=== PATIENT | male | born 1975 | race African-American/Black ===

== ENCOUNTER 2016-11-29 13:22 | Emergency (ER) | payer OTHER ==
[~2016-11-29] VITALS: Ht 180.3 cm; Wt 124.7 kg
[~2016-11-29 13:22] MED LIST: ASPIR-LOW81 MG ORAL; COLACE100 MG/10 GT; DAILY MULTIPLE1 EAC1 GT; DIGOXIN0.25 MG/5 GT; DIGOXIN125 MCG ORAL; FERROUS SULFAT325 M1 GT; HEPARIN SO5000 UNIT/ IJ; JEVITY 1.5 CA1000 ML GT; LISINOPRIL5 MG ORAL; MAG-OX 400400 MG GT; METOPROLOL TART25 MG GT; METOPROLOL5 MG/5 ML IV; OXYCODONE HCL5 M2 ORAL; REVATIO20 MG GT; THIAMINE H100 MG/1 M GT; TYLENOL100 MG/1 M GT; VITAMIN C500 MG/15 PO; XIFAXAN550 MG GT; ZOCOR10 MG GT; [UNRECOGNIZED DRUG - OTHER] GT
[2016-11-29 13:45] VITALS: BP 149/84
[2016-11-29] MEDS ORDERED: Lidocaine 1% MPF 10mg/ml 5ml IM ONE (14:30)
--- NOTE | 2016-11-29 14:35 | Emergency Room Report ---
History of Present Illness General Chief Complaint: Wound Recheck/Suture Removal Source: Medical Record Present Illness HPI The patient is a 41-year-old male presenting for suture removal. The patient was seen in this emergency Department 7 days prior and 3 sutures were placed in the left eyebrow. The patient denies any complaints including pain, discharge, bleeding, numbness, tingling, headache, dizziness Allergies: Coded Allergies: No Known Allergies (Unverified , 08/30/12) Patient History Past Medical History: see triage record Pertinent Family History: none Reviewed Nursing Documentation: PMH: Agreed, PSxH: Agreed Nursing Documentation-PMH Past Medical History: No History, Except For Hx Hypertension: Yes Hx Diabetes: Yes Hx Neurological Problems: Yes - HEPATIC ENCEPHALOPATHY Hx Cerebrovascular Accident: Yes - right sided weakness Hx Transient Ischemic Attacks: No Hx Dementia: No Hx Alzheimer's Disease: No Hx Parkinson's Disease: No Hx Meningitis: No Hx Encephalitis: No Hx Seizures: Yes Hx Epilepsy: No Hx Multiple Sclerosis: No Hx Cerebral Palsy: No Hx Amyotrophic Lat Sclerosis: No Hx Guillian-[place] Syndrome: No Hx Paralysis: No Hx Peripheral Neuropathy: No Hx Spinal Cord Injury: No Hx Head Trauma: No Hx Traumatic Brain Injury: No Hx Memory Loss: No Hx Concentration Difficulty: No Hx Speech Problem: No Hx Tremors: No Hx Vertigo: No Hx Syncope: No Hx Headaches: No Hx Dysphasia: Yes Hx Numbness: No Hx Weakness: Yes - BILATERAL LOWER EXTREMITIES Hx Fatigue: No Hx Neurologic Surgery: No Hx Brain Shunt: No Review of Systems All Other Systems: negative except mentioned in HPI Physical Exam Vital Signs Date Time Temp Pulse Resp B/P Pulse Ox O2 Delivery O2 Flow Rate FiO2 11/29/16 13:45 98.2 71 14 149/84 96 Room Air Sp02 EP Interpretation: reviewed, normal General Appearance: no apparent distress, alert, GCS 15, non-toxic Head: normocephalic, atraumatic Eyes: bilateral eye PERRL, bilateral eye normal inspection ENT: hearing grossly normal, normal pharynx, no angioedema, normal voice Neck: full range of motion, supple/symm/no masses Musculoskeletal: back normal, gait/station normal, normal range of motion, non- tender, calf tenderness Neurologic: alert, oriented x3, responsive, motor strength/tone normal, sensory intact, speech normal Psychiatric: judgement/insight normal, memory normal, mood/affect normal, no suicidal/homicidal ideation Skin: laceration - Left lateral eyebrow: [address] Wound is well approximated. No edema or erythema. No bleeding Medical Decision Making PA Attestation Dr. Monge is my supervising physician. Patient management was discussed with my supervising physician Diagnostic Impression: Primary Impression: Encounter for removal of sutures Additional Impression: Encounter for wound re-check ER Course The patient is a 41-year-old male presenting for suture removal. Differential diagnosis considered: Wound infection, nonhealing wound, cellulitis , abscess PE: Vitals WNL. NAD Left lateral eyebrow: [address] Wound is well approximated. No edema or erythema. No bleeding 3 prolene sutures removed from L eyebrow without complication. The patient is discharged home and will continue to keep the area clean and dry. ER precautions are given Last Vital Signs Date Time Temp Pulse Resp B/P Pulse Ox O2 Delivery O2 Flow Rate FiO2 11/29/16 13:45 98.3 71 14 149/84 96 Room Air Status: improved Disposition: HOME, SELF-CARE Condition: Improved Referrals: NON PHYSICIAN (PCP) NAVEEN KRUEGER Nov 29, 2016 14:35
[2016-11-29 14:48] VITALS: BP 149/84
== END 2016-11-29 14:51 | disposition home or self-care (01) ==
LOC: EMR 14:00
DX: S01.112D Laceration without foreign body of left eyelid and periocular area, subsequent encounter (principal); X58.XXXD Exposure to other specified factors, subsequent encounter; Z48.02 Encounter for removal of sutures; E11.9 Type 2 diabetes mellitus without complications; I10 Essential (primary) hypertension
CPT/HCPCS: 99281